=== PATIENT | male | born 1995 | race Hispanic/Latino ===

== ENCOUNTER 2019-09-22 22:19 | Emergency (ER) | payer SELFPAY ==
[2019-09-22] MEDS ORDERED: Fluorescein Opthalmic Strip ONE (23:27)
[2019-09-22] MEDS ORDERED: Proparacaine 0.5% Opth 15 ML BOT ONE (23:27)
== END 2019-09-23 00:05 | disposition home or self-care (01) ==
LOC: ERS 22:19
DX: T15.02XA Foreign body in cornea, left eye, initial encounter (principal); F17.200 Nicotine dependence, unspecified, uncomplicated; X58.XXXA Exposure to other specified factors, initial encounter
CPT/HCPCS: 65222

== ENCOUNTER 2019-12-09 18:13 | Emergency (ER) | payer SELFPAY ==
[2019-12-09] MEDS ORDERED: Dexamethasone 4 mg/ml Vial ONE (18:46)
[2019-12-09] MEDS ORDERED: diphenhydrAMINE 25 MG CAP ONE (18:46)
== END 2019-12-09 18:55 | disposition home or self-care (01) ==
LOC: ERS 18:13
DX: T63.441A Toxic effect of venom of bees, accidental (unintentional), initial encounter (principal); F17.290 Nicotine dependence, other tobacco product, uncomplicated
CPT/HCPCS: 99283; J1100; Q0163